=== PATIENT | female | born 1965 ===

== ENCOUNTER 2017-12-05 11:34 | Emergency (ER) | payer MEDICAID ==
[2017-12-05 11:58] VITALS: RESP 18; TEMP 98.2; O2SAT 100
[2017-12-05] MEDS ORDERED: Naproxen 550 mg Tab PO STA (12:13)
--- NOTE | 2017-12-05 12:15 | C.PDOC ---
History Of Present Illness 52 y/o female presents to ED with c/o left wrist pain intermittently for 4 months. Pain aggravated with movement. She was seen by Dr. James, had xray done that showed mild arthritis. Patient states she saw another PMD who diagnosed her with Tendonitis. Patient states she works at [employer] and uses both hands frequently. Deneis trauma, change in sensation, swelling, or any other complaints at this time. Time Seen by Provider: 12/05/17 11:53 Chief Complaint (Nursing): Finger,Hand,&Wrist History Per: Patient History/Exam Limitations: no limitations Onset/Duration Of Symptoms: Days Current Symptoms Are (Timing): Still Present Past Medical History Reviewed: Historical Data, Nursing Documentation, Vital Signs Vital Signs: Last Vital Signs Temp 98.2 F 12/05/17 11:47 Pulse 103 H 12/05/17 11:47 Resp 18 12/05/17 11:47 BP 163/89 H 12/05/17 11:47 Pulse Ox 100 12/05/17 11:47 - Medical History PMH: No Chronic Diseases Surgical History: No Surg Hx Family History: States: No Known Family Hx - Social History Hx Alcohol Use: No Hx Substance Use: No - Immunization History Hx Tetanus Toxoid Vaccination: Yes Hx Influenza Vaccination: Yes Hx Pneumococcal Vaccination: No Review Of Systems Musculoskeletal: Positive for: Hand Pain Skin: Negative for: Rash, Bruising Neurological: Negative for: Weakness, Numbness Physical Exam - Physical Exam Appears: Non-toxic, No Acute Distress Skin: Warm, Dry, No Rash Head: Atraumatic, Normacephalic Eye(s): bilateral: Normal Inspection, EOMI Nose: Normal Oral Mucosa: Moist Neck: Normal ROM, Supple Chest: Symmetrical Respiratory: No Accessory Muscle Use Extremity: No Normal ROM (decreased ROM secondary to pain), Tenderness (dorsal aspect of hand L), Capillary Refill (<2 seconds), No Deformity, Swelling (dorsal aspect of hands bilaterally) Extremity: Bilateral: Limited ROM To Joint (hands secondary to pain) Pulses: Left Radial: Normal, Right Radial: Normal Neurological/Psych: Oriented x3, Normal Motor, Normal Sensation ED Course And Treatment O2 Sat by Pulse Oximetry: 100 (RA) Pulse Ox Interpretation: Normal Progress Note: Agreed upon no repeat XR. Patient instructed RICE. Wrist immobilizer applied by construction services technician. Discussed return precautions. Patient discharged with follow up to Ortho in 1-2 days Disposition - Disposition Referrals: Gabe Ballard MD [Staff Provider] - Disposition: HOME/ ROUTINE Disposition Time: 12:13 Condition: STABLE Additional Instructions: Rest, ice and elevate the area. Follow up with the hand specialist in 1-2 days. Prescriptions: Naproxen [Naprosyn] 1 tab PO BID PRN #20 tab PRN Reason: Pain Instructions: Tendonitis (DC) Forms: [employer] (Polish) - Clinical Impression Clinical Impression: Left wrist pain - PA / RESIDENTIAL ADVISOR / Resident Statement MD/DO has reviewed & agrees with the documentation as recorded. - Scribe Statement The provider has reviewed the documentation as recorded by the Kirilliblenora Solano All medical record entries made by the Rita were at my direction and personally dictated by me. I have reviewed the chart and agree that the record accurately reflects my personal performance of the history, physical exam, medical decision making, and the department course for this patient. I have also personally directed, reviewed, and agree with the discharge instructions and disposition.
[2017-12-05] MEDS ORDERED: Naproxen 550 mg Tab PO ONE (12:20)
[2017-12-05 12:38] VITALS: BP 147/87; PULSE 76
== END 2017-12-05 12:35 | disposition home or self-care (01) ==
LOC: C.ER 11:34
DX: M25.532 Pain in left wrist (principal)